=== PATIENT | male | born 1945 | race Two or more races ===

== ENCOUNTER 2022-02-07 01:28 | Emergency (ER) | payer OTHER ==
[~2022-02-07] VITALS: Ht 172.7 cm; Wt 82.0 kg
[2022-02-07 02:04] VITALS: BP 120/60
[2022-02-07 03:36] LABS: Basophils # (auto) 0 10 ^3/uL (0-0.2); Basophils % (auto) 0.5 % (0.0-2.0); Eosinophils # (auto) 0.1 10 ^3/uL (0-0.8); Hematocrit 37.7 % (41.0-53.0); Hemoglobin 12.7 g/dL (13.5-17.5); Lymphocytes # (auto) 0.8 10 ^3/uL (0.4-5.4); Lymphocytes % (auto) 8.9 % (10.0-50.0); Mean Corpuscular Hemoglobin 30.1 pg (28.0-32.0); Mean Corpuscular Hgb Conc. 33.7 g/dL (32.0-36.0); Mean Corpuscular Volume 89.2 fL (80.0-100.0); Monocytes % (auto) 11.3 % (0.0-12.0); Neutrophils # (auto) 6.6 10 ^3/uL (1.6-8.6); Neutrophils % (auto) 78.3 % (37.0-80.0); Red Blood Cells 4.22 10^6/uL (4.5-5.90); Red Cell Distribution Width 13.9 % (11.8-14.3); White Blood Cell 8.5 10^3/uL (4.4-10.8)
[2022-02-07 03:53] LABS: Albumin 2.3 g/dL (3.4-5.0); Calcium 8.7 mg/dL (8.5-10.1)
[2022-02-07 03:56] LABS: BUN/Creatinine Ratio 14.3
[2022-02-07 03:58] LABS: Bilirubin, Total 0.6 mg/dL (0.2-1.0); Total Protein 7.5 g/dL (6.4-8.2)
== END 2022-02-07 04:59 | disposition left against medical advice (07) ==
LOC: ER 01:28 → EDBD 01:28 → ER 04:59
DX: R06.02 Shortness of breath (principal); R07.9 Chest pain, unspecified; Z53.21 Procedure and treatment not carried out due to patient leaving prior to being seen by health care provider
CPT/HCPCS: 36415; 80053; 83880; 84484; 85025; 93005

== ENCOUNTER 2024-01-15 04:09 | Emergency (ER) | payer OTHER ==
[~2024-01-15] VITALS: Ht 172.7 cm; Wt 83.3 kg
[2024-01-15 04:20] VITALS: BP 151/76; TEMP 97.5; O2SAT 94
[2024-01-15 04:33] VITALS: PULSE 76; RESP 20
[2024-01-15] MEDS ORDERED: EPIN0.1I11 IJ (04:45)
[2024-01-15] MEDS: DexAMETHasone SOD PHOS 10MG/1ML VIAL INJ IM ONE (04:54)
[2024-01-15] MEDS: FAMOTIDINE 20 MG TAB PO ONE (04:54)
[2024-01-15] MEDS: diphenhdrAMINE HCL 50 MG/1 ML VL IM ONE (04:55)
[2024-01-15] MEDS ORDERED: PRED20TA2 PO (05:18)
[2024-01-16] MEDS ORDERED: EPIN0.3I24 IJ (19:04)
== END 2024-01-15 05:30 | disposition home or self-care (01) ==
LOC: ER 04:09
DX: T78.3XXA Angioneurotic edema, initial encounter (principal); E11.9 Type 2 diabetes mellitus without complications; E78.5 Hyperlipidemia, unspecified; I11.0 Hypertensive heart disease with heart failure; I50.9 Heart failure, unspecified
CPT/HCPCS: 96372; 99284; J1100; J1200

== ENCOUNTER → 2024-06-28 | Outpatient (CLI) | payer MEDICAID ==
[~2024-06-28] MED LIST: EPIN0.3I24 IJ; PRED20TA2 PO
[2024-06-28 09:00] LABS: Urine Bacteria None Seen /hpf (None Seen)
[2024-06-28 09:10] LABS: Basophils # (auto) 0 10 ^3/uL (0-0.2); Basophils % (auto) 0.3 % (0.0-2.0); Eosinophils # (auto) 0.2 10 ^3/uL (0-0.8); Eosinophils % (auto) 3.1 % (0.0-7.0); Hematocrit 39.4 % (41.0-53.0); Hemoglobin 13.3 g/dL (13.5-17.5); Lymphocytes # (auto) 1.1 10 ^3/uL (0.4-5.4); Lymphocytes % (auto) 21.6 % (10.0-50.0); Mean Corpuscular Hemoglobin 33.1 pg (28.0-32.0); Mean Corpuscular Hgb Conc. 33.8 g/dL (32.0-36.0); Mean Corpuscular Volume 97.9 fL (80.0-100.0); Monocytes # (auto) 0.4 10 ^3/uL (0-1.3); Monocytes % (auto) 8.6 % (0.0-12.0); Neutrophils # (auto) 3.3 10 ^3/uL (1.6-8.6); Neutrophils % (auto) 66.4 % (37.0-80.0); Platelet Count (auto) 129 10^3/uL (140-450); Red Blood Cells 4.02 10^6/uL (4.5-5.90); Red Cell Distribution Width 14.1 % (11.8-14.3); White Blood Cell 5.1 10^3/uL (4.4-10.8)
[2024-06-28 09:26] LABS: Creatinine, Urine 146.02 mg/dL (30.0-125.0)
[2024-06-28 09:29] LABS: Alanine Aminotransferase 12 U/L (7-40); Albumin 4.3 g/dL (3.2-4.8); Alkaline Phosphatase 97 U/L (46-116); Anion Gap 6 (5-15); Aspartate Aminotransferase 17 U/L (13-40); BUN/Creatinine Ratio 13.2 (10.0-20.0); Blood Urea Nitrogen 19 mg/dL (9-23); Calcium 9.7 mg/dL (8.7-10.4); Carbon Dioxide 25 mmol/L (20-31); Cholesterol 111 mg/dL (< 200); LDL Cholesterol 56 mg/dL (< 100); Potassium 4.7 mmol/L (3.5-5.1); Sodium 140 mmol/L (136-145); Triglycerides 148 mg/dL (< 150)
[2024-06-28 09:30] LABS: Bilirubin, Total 0.8 mg/dL (0.2-1.0); Chloride 109 mmol/L (98-107); Glucose 124 mg/dL (74-106); HDL Cholesterol 33 mg/dL (40-59); Total Protein 7.1 g/dL (5.7-8.2)
[2024-06-28 09:40] LABS: Urine Blood Negative /uL (Negative); Urine Clarity Clear (Clear); Urine Color Yellow (Yellow); Urine Protein, UAD TRACE (Negative); Urine Specific Gravity 1.019 (1.001-1.035); Urine Squamous Epithelial Cell None Seen /hpf (<5); Urine Urobilinogen Normal (Negative); Urine WBC <1 /hpf (0 - 3); Urine pH 5.5 (5.0-9.0)
[2024-06-29 07:06] LABS: PSA Free 0.28 ng/mL; Prostate Specific Antigen 0.8 ng/mL (0.0-4.0)
== END | disposition home or self-care (01) ==
LOC: LAB 08:42
PROVIDERS: ATTEND Student in an Organized Health Care Education/Training Program
DX: Z12.5 Encounter for screening for malignant neoplasm of prostate (principal); Z12.11 Encounter for screening for malignant neoplasm of colon; I11.0 Hypertensive heart disease with heart failure; E55.9 Vitamin D deficiency, unspecified; I50.9 Heart failure, unspecified; E11.9 Type 2 diabetes mellitus without complications; E78.5 Hyperlipidemia, unspecified
CPT/HCPCS: 36415; 80053; 80061; 81001; 82043; 82306; 82570; 82607; 83036; 83880; 84154; 84443; 85025

== ENCOUNTER → 2024-08-23 | Outpatient (CLI) | payer MEDICAID ==
[~2024-08-23] VITALS: Ht 167.6 cm; Wt 79.4 kg
[2024-08-23] MEDS: REGADENOSON 0.4 MG/5 ML SYRG IV ONE (12:17)
--- NOTE | 2024-08-23 15:36 | DVHSR ---
APPROVED REPORT Exam: Nuclear Stress Test BMI: 0 Stress Test Details HR Max Heart Rate (APMHR): 142.803088 bpm Target HR (85% APMHR): 120.382773 bpm BP ECG Stress ECG Conclusion ecg shows SR,1st deg avb, IVCD pattern and frequent PVCs severe chf with ef 34% inferior infarct and austyn infarct ischemia is noted abnormal study NM EXAM: Myocardial Perfusion REST/STRESS Imaging Protocol: Rest Tc-99m/Stress Tc-99m 1 day Resting Data Rest SPECT myocardial perfusion imaging was performed in supine position 60 minutes following the int ravenous injection of 13.2 mCi of Tc-99m Sestamibi. Time of rest injection: 1100 Time of rest imagin Administration Route: IV Administration Site: Right Hand Pharmacologic Stress Pharmacologic stress test was performed by injecting Regadenoson 0.4 mg IV push followed by the intra venous injection of 32 mCi of Tc-99m Sestamibi. Time of stress injection: 1217 Time of stress imagin Administration Route: IV Administration Site: Right Hand Gated Stress SPECT was performed 60 minutes after stress injection. The images were gated to evaluate regional wall motion and calculate left ventricular ejection fracti on. Stress only was performed in the Supine position. Nuclear Conclusion Nuclear Findings: positive for ischemia ecg shows SR,1st deg avb, IVCD pattern and frequent PVCs severe chf with ef 34% inferior infarct and austyn infarct ischemia is noted abnormal study
== END | disposition home or self-care (01) ==
LOC: XYW 10:31
PROVIDERS: ATTEND Internal Medicine
DX: Z01.810 Encounter for preprocedural cardiovascular examination (principal); I25.9 Chronic ischemic heart disease, unspecified; I50.9 Heart failure, unspecified; H25.9 Unspecified age-related cataract; R06.02 Shortness of breath; R53.83 Other fatigue
CPT/HCPCS: 78452; 93017; A9500

== ENCOUNTER → 2024-09-28 | Outpatient (CLI) | payer MEDICAID ==
[~2024-09-28] MED LIST changes: +APIX5TAB PO; +ATOR40TA52 PO; +CARV3.1240 PO; +CYAN1TAB11 PO; +EMPA1TAB3 PO; +FURO20TA3 PO; +METF-370 PO; +RANO500T3 PO; +SACU1TAB4 PO; +SPIR25TA8 PO
[2024-09-28 11:08] LABS: Alanine Aminotransferase 16 U/L (7-40); Albumin 4.1 g/dL (3.2-4.8); Alkaline Phosphatase 99 U/L (46-116); Anion Gap 6 (5-15); Aspartate Aminotransferase 16 U/L (13-40); BUN/Creatinine Ratio 14.1 (10.0-20.0); Basophils # (auto) 0 10 ^3/uL (0-0.2); Blood Urea Nitrogen 20 mg/dL (9-23); Calcium 9.2 mg/dL (8.7-10.4); Carbon Dioxide 24 mmol/L (20-31); Eosinophils # (auto) 0.2 10 ^3/uL (0-0.8); Eosinophils % (auto) 3.5 % (0.0-7.0); Hemoglobin 13.4 g/dL (13.5-17.5); Lymphocytes # (auto) 0.9 10 ^3/uL (0.4-5.4); Lymphocytes % (auto) 19.8 % (10.0-50.0); Mean Corpuscular Hemoglobin 32.8 pg (28.0-32.0); Mean Corpuscular Hgb Conc. 34.2 g/dL (32.0-36.0); Mean Corpuscular Volume 95.8 fL (80.0-100.0); Monocytes # (auto) 0.5 10 ^3/uL (0-1.3); Monocytes % (auto) 9.7 % (0.0-12.0); Neutrophils # (auto) 3.1 10 ^3/uL (1.6-8.6); Nucleated Red Blood Cells % 0.2 %; Platelet Count (auto) 113 10^3/uL (140-450); Potassium 4.3 mmol/L (3.5-5.1); Red Blood Cells 4.07 10^6/uL (4.5-5.90); Red Cell Distribution Width 13.1 % (11.8-14.3); Sodium 139 mmol/L (136-145); Total Protein 6.7 g/dL (5.7-8.2); White Blood Cell 4.8 10^3/uL (4.4-10.8)
[2024-09-28 11:09] LABS: Bilirubin, Total 0.6 mg/dL (0.2-1.0)
[2024-09-28 11:11] LABS: Chloride 109 mmol/L (98-107); Glucose 119 mg/dL (74-106)
[2024-09-28 11:24] LABS: INR 1.06 (0.9-1.15); Partial Thromboplastin Time 29.3 SEC (24.5-34.5); Prothrombin Time 11.2 sec (9.3-11.8)
== END | disposition home or self-care (01) ==
LOC: LAB 10:29
PROVIDERS: ATTEND Internal Medicine
DX: Z01.812 Encounter for preprocedural laboratory examination (principal); Z79.01 Long term (current) use of anticoagulants; Z79.899 Other long term (current) drug therapy
CPT/HCPCS: 36415; 80053; 85025; 85610; 85730

== ENCOUNTER 2024-10-03 09:27 | Day surgery (SDC) | payer MEDICAID ==
[~2024-10-03] VITALS: Ht 170.2 cm; Wt 79.4 kg
[~2024-10-03 09:27] MED LIST changes: -EPIN0.3I24 IJ; -PRED20TA2 PO
[2024-10-03] MEDS ORDERED: IODIXANOL 320MG/ML 100ML BTL IV ONE (12:57)
[2024-10-03] MEDS ORDERED: VERAPAMIL 2.5MG/ML INJ 2ML VIAL IV ONE (14:23)
[2024-10-03] MEDS ORDERED: HEPARIN SODIUM (PORCINE) 5000 UNITS/ML 1ML VIAL ONE (14:23)
[2024-10-03] MEDS ORDERED: ANGIOMAX 250 MG VIAL IV ONE (14:23)
[2024-10-03] MEDS ORDERED: fentaNYL CITRATE 100 MCG/2 ML VL ONE (14:24)
[2024-10-03] MEDS ORDERED: LIDOCAINE 2%HCL (LOCAL ANESTH.) INJ 20ML MDV ONE (14:24)
[2024-10-03] MEDS ORDERED: MIDAZOLAM HCL 2MG/2ML 2ml VIAL (1mg/ml) ONE (14:24)
[2024-10-03] MEDS ORDERED: SODIUM CHL 0.9% 0 ML ONE (14:24)
--- NOTE | 2024-10-03 15:07 | DVHOP2 ---
Operative Report - 2 Report Details Date: 10/03/24 Preop Diagnosis: Coronary artery disease. Postop Diagnosis: Mild CAD. Cardiomyopathy. Surgeon: Conchita Cordoba MD Anesthesiologist: Conscious sedation Anesthesia: Mac (Conscious sedation was given throughout the procedure. Patient was monitored during the entirety of procedure), Local Consent: The patient was informed of the risks and benefits of the procedure. These include but are not limited to complications of anesthesia, postoperative infection, incomplete relief of symptoms, recurrence of symptoms, damage to blood vessels, nerves and tendons, deep venous thrombosis, pulmonary embolism and possible need for repeat surgery in the future. Complications: No complications Estimated Blood Loss: 2 cc Findings: Mild to moderate CAD. Cardiomyopathy. Indications for Surgery: Abnormal stress test. Angina. Name of Procedure Performed Left heart catheterization bilateral cine coronary angiography. Left ventriculography. Procedure Details Procedure Details: Prior local anesthesia with 2% lidocaine to the right wrist and full informed consent obtained the patient was prepped and draped in usual fashion followed by placement of a Taj catheter via a six Croatian sheath into the right radial artery. Cannulation of both right and left coronary ostia and ventriculography was performed without complications. Hemodynamics: Aortic blood pressure is 110/70. End-diastolic pressure was five. There was no gradient across the aortic valve on pullback. Coronary anatomy the RCA is a large vessel. It is dull in its proximal mid and distal segments with the ectatic characteristics in aneurysmal dilatation of the proximal segment. The mid and distal segments are otherwise free of significant disease. The 2nd posterolateral branch has a 90% stenosis however it is rather small. The PDA and the first posterolateral branches are otherwise normal. The left main is large and normal. Left anterior descending is a large vessel with moderate plaquing in its proximal mid and distal segments. No critical lesions or stenosis present. The large diagonals free of significant disease. The circumflex is a nondominant vessel. It was free of significant disease. Ventriculography in the RENTERIA projection shows a dilated left ventricle. Global hypokinesis. Akinesis of the infero apical segment of the left ventricle. EF of about 30-35%. Impression: Normal left ventricular end-diastolic pressure at rest with decreased left ventricular ejection fraction. Mild CAD. Recommendations: Medical therapy is warranted continue with risk factor modif ication. Condition Good Disposition Home Date of Service: Oct 03, 2024 Billing Provider: CONCHITA CORDOBA Sr., MD Cardiology Common Codes: 64404-AKEETUR INP/OBS CARE (High) Cardiology Procedure Codes: 47564-VNDK ADD COR ART/BRNCH/GRFT, 12935-LWXO HEART CATH W/INTRA INJ CONCHITA CORDOBA Sr., MD Oct 03, 2024 15:07
== END 2024-10-03 17:25 | disposition home or self-care (01) ==
LOC: CATH 09:27
PROVIDERS: ATTEND Internal Medicine
DX: I25.119 Atherosclerotic heart disease of native coronary artery with unspecified angina pectoris (principal); I42.9 Cardiomyopathy, unspecified; R94.39 Abnormal result of other cardiovascular function study; Z79.82 Long term (current) use of aspirin; Z79.899 Other long term (current) drug therapy
CPT/HCPCS: 93458; C1887; C1894; J1644; J2250; J3010; Q9967; 99152

== ENCOUNTER 2025-01-08 08:05 | Outpatient (CLI) | payer MEDICAID ==
[2025-01-08 08:55] LABS: Hematocrit 40.8 % (41.0-53.0); Hemoglobin 14.1 g/dL (13.5-17.5); Mean Corpuscular Hemoglobin 33.1 pg (28.0-32.0); Mean Corpuscular Volume 95.9 fL (80.0-100.0); Nucleated Red Blood Cells % 0.1 %
[2025-01-08 10:04] LABS: Albumin 4.3 g/dL (3.2-4.8); Alkaline Phosphatase 103 U/L (46-116); Anion Gap 10 (5-15); BUN/Creatinine Ratio 14.0 (10.0-20.0); Blood Urea Nitrogen 22 mg/dL (9-23); Calcium 9.9 mg/dL (8.7-10.4); Carbon Dioxide 23 mmol/L (20-31); Chloride 107 mmol/L (98-107); Potassium 4.0 mmol/L (3.5-5.1); Sodium 140 mmol/L (136-145); Total Protein 6.9 g/dL (5.7-8.2)
[2025-01-08 10:05] LABS: Alanine Aminotransferase < 9 U/L (7-40); Bilirubin, Total 0.7 mg/dL (0.2-1.0); Cholesterol 112 mg/dL (< 200); Glucose 113 mg/dL (74-106); HDL Cholesterol 30 mg/dL (40-59); Triglycerides 172 mg/dL (< 150)
[2025-01-08 10:57] LABS: Urine Protein, UAD TRACE (Negative)
[2025-01-08 11:09] LABS: Microalb/Creat Ratio, Urine 12.0
[2025-01-09 11:17] LABS: Hepatitis A Total Antibody Positive (Negative); Hepatitis B Surface Antigen Negative (Negative); Hepatitis C Antibody Negative (Negative)
== END 2025-01-08 17:00 | disposition home or self-care (01) ==
LOC: LAB 08:05
PROVIDERS: ATTEND Nurse Practitioner Family
DX: I11.0 Hypertensive heart disease with heart failure (principal); E11.9 Type 2 diabetes mellitus without complications; I50.9 Heart failure, unspecified; E78.5 Hyperlipidemia, unspecified; E55.9 Vitamin D deficiency, unspecified; D69.6 Thrombocytopenia, unspecified; R07.9 Chest pain, unspecified
CPT/HCPCS: 36415; 80053; 80061; 81001; 82043; 82306; 82570; 82607; 83036; 84443; 85025; 86704; 86706; 86708; 86803; 87340

== ENCOUNTER 2025-04-15 09:04 | Outpatient (CLI) | payer MEDICAID ==
[2025-04-15 09:41] LABS: Hematocrit 43.0 % (41.0-53.0); Hemoglobin 14.8 g/dL (13.5-17.5); Mean Corpuscular Hemoglobin 32.9 pg (28.0-32.0); Mean Corpuscular Volume 95.5 fL (80.0-100.0); Nucleated Red Blood Cells % 0.0 %
[2025-04-15 09:59] LABS: Alanine Aminotransferase 12 U/L (7-40); Anion Gap 11 (5-15); BUN/Creatinine Ratio 9.4 (10.0-20.0); Blood Urea Nitrogen 13 mg/dL (9-23); Calcium 9.0 mg/dL (8.7-10.4); Carbon Dioxide 24 mmol/L (20-31); Chloride 105 mmol/L (98-107); Potassium 3.9 mmol/L (3.5-5.1); Sodium 140 mmol/L (136-145); Total Protein 7.2 g/dL (5.7-8.2)
[2025-04-15 10:00] LABS: Albumin 4.1 g/dL (3.2-4.8); Cholesterol 137 mg/dL (< 200)
[2025-04-15 10:01] LABS: Bilirubin, Total 0.8 mg/dL (0.2-1.0)
[2025-04-15 10:12] LABS: Alkaline Phosphatase 118 U/L (46-116); Glucose 123 mg/dL (74-106); HDL Cholesterol 33 mg/dL (40-59); Triglycerides 192 mg/dL (< 150)
[2025-04-15 10:21] LABS: Urine Protein, UAD TRACE (Negative)
== END 2025-04-15 17:00 | disposition home or self-care (01) ==
LOC: LAB 09:04
PROVIDERS: ATTEND Nurse Practitioner Family
DX: I11.9 Hypertensive heart disease without heart failure (principal); I50.9 Heart failure, unspecified; E11.9 Type 2 diabetes mellitus without complications; E78.5 Hyperlipidemia, unspecified; E55.9 Vitamin D deficiency, unspecified
CPT/HCPCS: 36415; 80053; 80061; 81001; 82043; 82306; 83036; 84443; 85025